=== PATIENT | male | born 1975 | race Two or more races ===

== ENCOUNTER 2017-11-15 21:55 | Emergency (ER) | payer BC ==
[~2017-11-15] VITALS: Ht 180.3 cm; Wt 75.0 kg
[2017-11-15] MEDS ORDERED: nitroGLYCERIN 0.4mg SUBLingual tab SL PRN (22:40)
[2017-11-15] MEDS ORDERED: aspirin 81mg tab.chew PO ONE (22:40)
[2017-11-15 23:00] LABS: BASOPHILS % (AUTO) 0.2 % (0-1); EOSINOPHILS # (AUTO) 0.2 X10'3 (0-0.9); EOSINOPHILS % (AUTO) 1.8 % (0-6); HEMATOCRIT 39.7 % (42.0-52.0); HEMOGLOBIN 13.1 g/dl (14.0-17.9); LYMPHOCYTES # (AUTO) 1.2 X10'3 (1.1-4.8); MEAN CORPUSCULAR HEMOGLOBIN 26.5 PG (27.0-31.0); MEAN CORPUSCULAR HGB CONC 33.1 % (33.0-36.5); MEAN CORPUSCULAR VOLUME 80.2 FL (78-98); MONOCYTES # (AUTO) 0.7 X10'3 (0-0.9); NEUTROPHILS # (AUTO) 10.1 X10'3 (1.8-7.7); PLATELET COUNT 280 X10'3 (140-440); RED BLOOD COUNT 4.95 X10'6 (4.70-6.10); RED CELL DISTRIBUTION WIDTH 13.4 % (11.5-14.5); WHITE BLOOD COUNT 12.3 X10'3 (4.5-11.0)
[2017-11-15 23:21] LABS: ALANINE AMINOTRANSFERASE 26 U/L (12-78); ALBUMIN 3.3 G/DL (3.4-5.0); ALBUMIN/GLOBULIN RATIO 0.8 (1.1-1.5); ALKALINE PHOSPHATASE 96 IU/L (46-116); ANION GAP 8 (8-16); ASPARTATE AMINO TRANSFERASE 13 U/L (10-37); BILIRUBIN,TOTAL 0.3 MG/DL (0.1-1.0); BLOOD UREA NITROGEN 15 MG/DL (7-18); BUN/CREATININE RATIO 14.2 (5.4-32.0); CALCIUM 8.4 MG/DL (8.5-10.1); CHLORIDE 102 MMOL/L (99-107); CREATININE 1.06 MG/DL (0.60-1.10); GLUCOSE 107 MG/DL (70-104); MAGNESIUM 2.1 MG/DL (1.5-2.4); POTASSIUM 4.1 MMOL/L (3.5-5.1); SODIUM 139 MMOL/L (135-145); TOTAL PROTEIN 7.5 G/DL (6.4-8.2); eGFR 76 ML/MIN
[2017-11-16] MEDS ORDERED: ketorolac trometh. 30mg/ml inj. IV ONE ×2 (00:20→00:35)
[2017-11-16] MEDS ORDERED: ipratropium/albuterol 3ml nebule NEB ONE (00:35)
[2017-11-16] MEDS ORDERED: methylPREDNISolone sod succ 125mg/2ml vial IV ONE (01:05)
[2017-11-16] MEDS ORDERED: CefTRIAXone inj 1,000 MG in normal saline 50ml IV soln 50 ML IV ONE (01:40)
[2017-11-16] MEDS ORDERED: cefTRIAXone 1g/NS 100ml IVPB 100 ML IV STA ×2 (03:01→03:02)
[2017-11-16] MEDS ORDERED: CefTRIAXone 1 gm/50ml D5W ADV 50 ML IV ONE (03:10)
[2017-11-16] MEDS ORDERED: ALBU6.7H INH (03:21)
[2017-11-16] MEDS ORDERED: AZIT-63 PO (03:21)
[2017-11-16] MEDS ORDERED: PRED20TA PO (03:21)
[2017-11-16] MEDS ORDERED: cefTRIAXone 1g/NS 100ml IVPB 100 ML IV ONE (03:38)
[2017-11-16 04:23] VITALS: BP 110/65
[2017-11-16 05:42] LABS: TOTAL CELLS COUNTED 100
[2017-11-16 05:43] LABS: PLATELET ESTIMATE NORMAL
[2017-11-16] MEDS ORDERED: cefTRIAXone 1g/NS 100ml IVPB 100 ML IV SCH (08:00)
== END 2017-11-16 04:28 | disposition home or self-care (01) ==
LOC: ER 21:56
DX: J18.9 Pneumonia, unspecified organism (principal); F17.200 Nicotine dependence, unspecified, uncomplicated; Z79.899 Other long term (current) drug therapy
CPT/HCPCS: 36415; 71046; 80053; 83735; 83880; 84484; 85025; 93005; 94640; 94760; 96365; 96375; 99285; J0696; J1885; J2930; J7040